=== PATIENT | female | born 1990 | race African-American/Black ===

== ENCOUNTER 2016-09-13 01:06 | Emergency (ER) | payer OTHER ==
[~2016-09-13 01:06] MED LIST: AMOXICILLIN500 M1 PO; AUGMENTIN PO; BACTRIM DS TABL1 TA1 PO; BACTRIM DS TABL1 TAB PO; BENADRYL25 MG PO; IBUPROFEN PO; IBUPROFEN100 MG PO; KEFLEX500 MG PO; PYRIDIUM PO
== END 2016-09-13 03:07 | disposition home or self-care (01) ==
LOC: CED 01:06
DX: L02.416 Cutaneous abscess of left lower limb (principal); F17.210 Nicotine dependence, cigarettes, uncomplicated
CPT/HCPCS: 10060; 99282